=== PATIENT | male | born 1985 | race Asian ===

== ENCOUNTER 2019-11-15 20:57 | Emergency (ER) | payer SELFPAY ==
[~2019-11-15] VITALS: Ht 190.5 cm; Wt 117.0 kg
[2019-11-15 20:59] VITALS: BP 144/98
--- NOTE | 2019-11-15 21:12 | NUR ---
PT. TO ROOM FROM LOBBY WITH STEADY GAIT.
--- NOTE | 2019-11-15 22:07 | NUR ---
DC EDUCATION PROVIDED, PT DEMONSTRATES UNDERSTANDING. PT AMBULATED STEADILY TO DC WITH RN AND FRIEND.
== END 2019-11-15 22:15 | disposition home or self-care (01) ==
LOC: ED 22:00
DX: J18.1 Lobar pneumonia, unspecified organism (principal)
CPT/HCPCS: 71046; 99283